=== PATIENT | male | born 1955 | race Two or more races ===

== ENCOUNTER 2022-03-12 11:14 | Inpatient (IN) | payer OTHER, MEDICAID ==
[~2022-03-12] VITALS: Ht 162.6 cm; Wt 72.5 kg
[2022-03-12 14:07] LABS: Basophils # (auto) 0 10 ^3/uL (0-0.2); Basophils % (auto) 0.7 % (0.0-2.0); Eosinophils # (auto) 0.2 10 ^3/uL (0-0.8); Hematocrit 38.6 % (41.0-53.0); Hemoglobin 13.5 g/dL (13.5-17.5); Lymphocytes % (auto) 19.9 % (10.0-50.0); Mean Corpuscular Hgb Conc. 35.1 g/dL (32.0-36.0); Mean Corpuscular Volume 82.6 fL (80.0-100.0); Monocytes # (auto) 0.4 10 ^3/uL (0-1.3); Monocytes % (auto) 7.8 % (0.0-12.0); Neutrophils # (auto) 3.5 10 ^3/uL (1.6-8.6); Neutrophils % (auto) 68.6 % (37.0-80.0); Nucleated Red Blood Cells % 0.1 %; Red Blood Cells 4.67 10^6/uL (4.5-5.90); White Blood Cell 5.1 10^3/uL (4.4-10.8)
[2022-03-12 14:10] LABS: Albumin 3.8 g/dL (3.4-5.0); Calcium 9.2 mg/dL (8.5-10.1); Potassium 4.5 mmol/L (3.5-5.1)
[2022-03-12 14:13] LABS: BUN/Creatinine Ratio 15.5; Bilirubin, Total 0.7 mg/dL (0.2-1.0); Total Protein 7.2 g/dL (6.4-8.2)
[2022-03-12] MEDS ORDERED: hydrALAZINE HCL 20 MG/ML VL IV PRN (15:45)
[2022-03-12] MEDS ORDERED: DEXTROSE (50%) 50ML SYRG IV PRN (15:45)
[2022-03-12] MEDS ORDERED: SODIUM CHLORIDE 0.9% 1,000 ML IV ONE ×2 (16:00)
[2022-03-12 16:20] LABS: Cholesterol 132 mg/dL (< 200)
[2022-03-12 16:23] LABS: HDL Cholesterol 46 mg/dL (40-59); LDL Cholesterol 67 mg/dL (< 100); Triglycerides 113 mg/dL (< 150)
[2022-03-12] MEDS ORDERED: ERTU15TA PO (16:38)
[2022-03-12] MEDS ORDERED: FAMO20IN2 PO (16:38)
[2022-03-12] MEDS ORDERED: APIX5TAB PO (16:38)
[2022-03-12] MEDS ORDERED: TAMS1CAP25 PO (16:38)
[2022-03-12] MEDS ORDERED: LOSA25TA38 PO (16:38)
[2022-03-12] MEDS: InsuLIN REG 1unit/0.01ml Soln (100units/ml) SC SCH ×2 (18:00→23:53)
[2022-03-12] MEDS: ACCU-CHEK COMFORT CURVE STRIP VI SCH ×2 (18:03→23:53)
[2022-03-12] MEDS ORDERED: KETOROLAC TROMETH 30 MG/ML 1ML VIAL IV ONE (20:00)
[2022-03-12] MEDS ORDERED: LORazepam 2MG/ML-1ML VIAL IV PRN (21:15)
[2022-03-12 22:00] VITALS: BP 151/78
[2022-03-12] MEDS: APIXABAN 5 MG TAB PO SCH (22:00)
[2022-03-13 00:04] VITALS: BP 152/77
[2022-03-13 04:30] VITALS: BP 152/74
[2022-03-13] MEDS: InsuLIN REG 1unit/0.01ml Soln (100units/ml) SC SCH ×4 (05:24→23:38)
[2022-03-13] MEDS: ACCU-CHEK COMFORT CURVE STRIP VI SCH ×4 (05:24→23:36)
[2022-03-13 05:26] LABS: Basophils # (auto) 0 10 ^3/uL (0-0.2); Basophils % (auto) 0.8 % (0.0-2.0); Eosinophils # (auto) 0.2 10 ^3/uL (0-0.8); Eosinophils % (auto) 5.1 % (0.0-7.0); Hematocrit 37.3 % (41.0-53.0); Hemoglobin 13.3 g/dL (13.5-17.5); Lymphocytes % (auto) 26.6 % (10.0-50.0); Mean Corpuscular Hemoglobin 29.6 pg (28.0-32.0); Mean Corpuscular Hgb Conc. 35.5 g/dL (32.0-36.0); Mean Corpuscular Volume 83.2 fL (80.0-100.0); Monocytes # (auto) 0.4 10 ^3/uL (0-1.3); Monocytes % (auto) 10.3 % (0.0-12.0); Neutrophils # (auto) 2.2 10 ^3/uL (1.6-8.6); Neutrophils % (auto) 57.2 % (37.0-80.0); Nucleated Red Blood Cells % 0.1 %; Red Blood Cells 4.48 10^6/uL (4.5-5.90); Red Cell Distribution Width 13.4 % (11.8-14.3); White Blood Cell 3.9 10^3/uL (4.4-10.8)
[2022-03-13 05:49] LABS: Albumin 3.2 g/dL (3.4-5.0); Calcium 8.4 mg/dL (8.5-10.1); Potassium 3.8 mmol/L (3.5-5.1)
[2022-03-13 05:52] LABS: BUN/Creatinine Ratio 16.5; Bilirubin, Total 0.7 mg/dL (0.2-1.0); Total Protein 6.2 g/dL (6.4-8.2)
[2022-03-13 08:30] VITALS: BP 111/61
[2022-03-13] MEDS: APIXABAN 5 MG TAB PO SCH ×2 (10:00→21:23)
[2022-03-13 12:33] VITALS: BP 123/65
[2022-03-13 12:38] LABS: Urine Bacteria FEW /hpf (None Seen); Urine Blood Negative /uL (Negative); Urine Specific Gravity 1.018 (1.001-1.035); Urine WBC 1 /hpf (0 - 3)
[2022-03-13 13:47] LABS: Alcohol, Urine < 3.0 mg/dL (0-10); Amphetamine Screen, Urine NEGATIVE (NEGATIVE); Barbiturate Scree,Urine NEGATIVE (NEGATIVE); Benzodiazephine Screen, Urine NEGATIVE (NEGATIVE); Cannabinoid Screen, Urine NEGATIVE (NEGATIVE); Cocaine Screen, Urine NEGATIVE (NEGATIVE); Opiate Scree,Urine NEGATIVE (NEGATIVE); Phencyclidine Screen, Urine NEGATIVE (NEGATIVE)
[2022-03-13 16:00] VITALS: BP 131/70
[2022-03-13] MEDS ORDERED: TAMSULOSIN HYDROCHLORIDE 0.4 MG CAP PO SCH (18:00)
[2022-03-13] MEDS: DOCUSATE SOD 100 MG CAP PO SCH (21:23)
[2022-03-13 22:00] VITALS: BP 126/67
[2022-03-14] VITALS (8 sets, daily range): BP systolic 119–135; BP diastolic 66–77
[2022-03-14] MEDS: InsuLIN REG 1unit/0.01ml Soln (100units/ml) SC SCH ×4 (06:00→23:54)
[2022-03-14] MEDS: ACCU-CHEK COMFORT CURVE STRIP VI SCH ×4 (06:03→23:49)
[2022-03-14] MEDS: DOCUSATE SOD 100 MG CAP PO SCH ×2 (09:51→23:00)
[2022-03-14] MEDS: APIXABAN 5 MG TAB PO SCH ×2 (09:51→23:00)
[2022-03-14] MEDS ORDERED: LACTULOSE 20Gm/30ML SOLN PO PRN (10:15)
[2022-03-14 11:34] LABS: BUN/Creatinine Ratio 17.2; Calcium 8.9 mg/dL (8.5-10.1); Potassium 4.3 mmol/L (3.5-5.1)
[2022-03-15] VITALS: BP 132/90
[2022-03-15 04:47] VITALS: BP 123/70
[2022-03-15] MEDS: ACCU-CHEK COMFORT CURVE STRIP VI SCH ×4 (06:11→23:35)
[2022-03-15] MEDS: InsuLIN REG 1unit/0.01ml Soln (100units/ml) SC SCH ×4 (06:19→23:36)
[2022-03-15 08:00] VITALS: BP_SYST 140; BP_SYST 98; BP_DIAS 60; BP_DIAS 66
[2022-03-15] MEDS: APIXABAN 5 MG TAB PO SCH ×2 (09:38→21:08)
[2022-03-15] MEDS: DOCUSATE SOD 100 MG CAP PO SCH ×2 (09:38→21:07)
[2022-03-15 12:25] VITALS: BP 143/72
[2022-03-15 16:00] VITALS: BP 126/69
[2022-03-15 22:00] VITALS: BP 134/67
[2022-03-16 05:00] VITALS: BP 119/68
[2022-03-16] MEDS: ACCU-CHEK COMFORT CURVE STRIP VI SCH ×4 (05:12→23:32)
[2022-03-16] MEDS: InsuLIN REG 1unit/0.01ml Soln (100units/ml) SC SCH ×4 (05:13→23:35)
[2022-03-16 08:00] VITALS: BP 127/68
[2022-03-16 09:00] VITALS: BP 127/68
[2022-03-16] MEDS: DOCUSATE SOD 100 MG CAP PO SCH ×2 (09:25→22:06)
[2022-03-16] MEDS: APIXABAN 5 MG TAB PO SCH ×2 (09:25→22:06)
[2022-03-16 16:30] VITALS: BP 127/67
[2022-03-16 22:00] VITALS: BP 133/65
[2022-03-17] VITALS (7 sets, daily range): BP systolic 116–137; BP diastolic 50–70
[2022-03-17] MEDS: ACCU-CHEK COMFORT CURVE STRIP VI SCH ×4 (05:26→23:54)
[2022-03-17] MEDS: InsuLIN REG 1unit/0.01ml Soln (100units/ml) SC SCH ×4 (05:27→23:56)
[2022-03-17] MEDS: APIXABAN 5 MG TAB PO SCH ×2 (11:19→21:58)
[2022-03-17] MEDS: DOCUSATE SOD 100 MG CAP PO SCH ×2 (11:19→21:59)
[2022-03-17] MEDS ORDERED: [UNRECOGNIZED DRUG - OTHER] IM ONE ×4 (15:30→19:00)
[2022-03-18 05:00] VITALS: BP 130/68
[2022-03-18] MEDS: ACCU-CHEK COMFORT CURVE STRIP VI SCH ×2 (05:15→12:02)
[2022-03-18] MEDS: InsuLIN REG 1unit/0.01ml Soln (100units/ml) SC SCH ×2 (05:17→12:00)
[2022-03-18 08:00] VITALS: BP 128/53
[2022-03-18 09:00] VITALS: BP 128/53
[2022-03-18] MEDS: DOCUSATE SOD 100 MG CAP PO SCH (10:09)
[2022-03-18] MEDS: APIXABAN 5 MG TAB PO SCH (10:09)
[2022-03-18 13:00] VITALS: BP 135/68
[2022-03-18 16:00] VITALS: BP 136/60
[2022-03-18] MEDS ORDERED: TAMSULOSIN HYDROCHLORIDE 0.4 MG CAP PO SCH (18:00)
[2022-03-19] MEDS ORDERED: LOSARTAN POTASSIUM 25 MG TAB PO SCH (10:00)
== END 2022-03-18 16:17 | DRG 64 ==
LOC: ER 11:14 → TELE 15:37 → TELE-CENTR 18:50
PROVIDERS: ADMIT Registered Nurse; ATTEND Internal Medicine
DX: I63.9 Cerebral infarction, unspecified (principal); N17.0 Acute kidney failure with tubular necrosis; I69.354 Hemiplegia and hemiparesis following cerebral infarction affecting left non-dominant side; N18.30 Chronic kidney disease, stage 3 unspecified; I12.9 Hypertensive chronic kidney disease with stage 1 through stage 4 chronic kidney disease, or unspecified chronic kidney disease; D69.6 Thrombocytopenia, unspecified; E11.65 Type 2 diabetes mellitus with hyperglycemia; E78.5 Hyperlipidemia, unspecified; Z20.822 Contact with and (suspected) exposure to COVID-19; I48.91 Unspecified atrial fibrillation; N40.1 Benign prostatic hyperplasia with lower urinary tract symptoms; R33.8 Other retention of urine; Z79.01 Long term (current) use of anticoagulants; Z86.718 Personal history of other venous thrombosis and embolism; Z90.49 Acquired absence of other specified parts of digestive tract
CPT/HCPCS: 36415; 70450; 70551; 71045; 73030; 76775; 80048; 80053; 80061; 80307; 81001; 82962; 83036; 85025; 87081; 91301; 92610; 93005; 93306; 93886; 96360; 96361; 97163; 99291; G0378; J1815; J1885

== ENCOUNTER → 2022-06-27 | Outpatient (CLI) | payer MEDICAID ==
[~2022-06-27] MED LIST: APIX5TAB PO; ERTU15TA PO; FAMO20IN2 PO; LOSA25TA38 PO; TAMS1CAP25 PO
[2022-06-27 12:02] LABS: Basophils # (auto) 0 10 ^3/uL (0-0.2); Basophils % (auto) 0.3 % (0.0-2.0); Eosinophils # (auto) 0.1 10 ^3/uL (0-0.8); Eosinophils % (auto) 1.4 % (0.0-7.0); Hematocrit 44.4 % (41.0-53.0); Hemoglobin 14.9 g/dL (13.5-17.5); Lymphocytes % (auto) 16.2 % (10.0-50.0); Mean Corpuscular Hemoglobin 28.5 pg (28.0-32.0); Mean Corpuscular Hgb Conc. 33.5 g/dL (32.0-36.0); Monocytes # (auto) 0.4 10 ^3/uL (0-1.3); Monocytes % (auto) 6.6 % (0.0-12.0); Neutrophils # (auto) 4.8 10 ^3/uL (1.6-8.6); Neutrophils % (auto) 75.5 % (37.0-80.0); Nucleated Red Blood Cells % 0.1 %; Red Blood Cells 5.23 10^6/uL (4.5-5.90); Red Cell Distribution Width 13.9 % (11.8-14.3); White Blood Cell 6.4 10^3/uL (4.4-10.8)
[2022-06-27 12:28] LABS: Potassium 4.1 mmol/L (3.5-5.1)
[2022-06-27 12:41] LABS: BUN/Creatinine Ratio 17.6; Calcium 9.3 mg/dL (8.5-10.1); Total Protein 7.3 g/dL (6.4-8.2)
== END | disposition home or self-care (01) ==
LOC: LAB 11:22
PROVIDERS: ATTEND Student in an Organized Health Care Education/Training Program
DX: E11.9 Type 2 diabetes mellitus without complications (principal); I10 Essential (primary) hypertension
CPT/HCPCS: 36415; 80053; 80061; 83036; 84443; 85025

== ENCOUNTER → 2024-02-05 | Outpatient (CLI) | payer OTHER ==
[~2024-02-05] VITALS: Ht 160 cm; Wt 70.3 kg
[~2024-02-05] MED LIST changes: +ADENOSINE 59 MG in GIVE UN-DILUTED 0 ML IV ONE; +ADENOSINE 90 MG/30 ML INJ IV ONE; +LOSA25TA15 PO; -LOSA25TA38 PO
== END | disposition home or self-care (01) ==
LOC: Rad HDHVI 10:14
PROVIDERS: ATTEND Internal Medicine Cardiovascular Disease
DX: I25.10 Atherosclerotic heart disease of native coronary artery without angina pectoris (principal); E11.9 Type 2 diabetes mellitus without complications; R42 Dizziness and giddiness; E78.5 Hyperlipidemia, unspecified; I10 Essential (primary) hypertension; Z82.49 Family history of ischemic heart disease and other diseases of the circulatory system
CPT/HCPCS: 78452; 93005; 96374; 96375; A9500; J0153

== ENCOUNTER 2024-03-10 07:43 | Day surgery (SDC) | payer OTHER, MEDICAID ==
[2024-03-08 11:57] LABS: Basophils # (auto) 0 10 ^3/uL (0-0.2); Basophils % (auto) 0.6 % (0.0-2.0); Eosinophils # (auto) 0.1 10 ^3/uL (0-0.8); Eosinophils % (auto) 1.9 % (0.0-7.0); Hematocrit 41.9 % (41.0-53.0); Hemoglobin 14.4 g/dL (13.5-17.5); Lymphocytes # (auto) 0.9 10 ^3/uL (0.4-5.4); Lymphocytes % (auto) 12.7 % (10.0-50.0); Mean Corpuscular Hemoglobin 28.8 pg (28.0-32.0); Mean Corpuscular Hgb Conc. 34.2 g/dL (32.0-36.0); Mean Corpuscular Volume 84.1 fL (80.0-100.0); Monocytes # (auto) 0.5 10 ^3/uL (0-1.3); Monocytes % (auto) 6.8 % (0.0-12.0); Neutrophils # (auto) 5.3 10 ^3/uL (1.6-8.6); Nucleated Red Blood Cells % 0.1 %; Red Blood Cells 4.98 10^6/uL (4.5-5.90); Red Cell Distribution Width 13.9 % (11.8-14.3); White Blood Cell 6.8 10^3/uL (4.4-10.8)
[2024-03-08 12:13] LABS: INR 1.06 (0.9-1.15); Prothrombin Time 11.1 sec (9.3-11.8)
[2024-03-08 12:41] LABS: Calcium 9.9 mg/dL (8.5-10.1); Chloride 106 mmol/L (98-107); Potassium 4.6 mmol/L (3.5-5.1); Sodium 140 mmol/L (136-145)
[2024-03-08 12:42] LABS: Anion Gap 4 (5-15); Carbon Dioxide 30 mmol/L (20-30)
[2024-03-08 12:47] LABS: Glucose 176 mg/dL (74-106)
[2024-03-08 12:48] LABS: BUN/Creatinine Ratio 11.9 (10.0-20.0); Blood Urea Nitrogen 21 mg/dL (9-23)
[~2024-03-10] VITALS: Ht 162.6 cm; Wt 69.9 kg
[2024-03-10] VITALS (8 sets, daily range): BP systolic 114–147; BP diastolic 61–86; PULSE 66–76; RESP 12–18; O2SAT 98–99
[~2024-03-10 07:43] MED LIST changes: -ADENOSINE 59 MG in GIVE UN-DILUTED 0 ML IV ONE; -ADENOSINE 90 MG/30 ML INJ IV ONE; +ASPI1TAB19 PO; +ATOR40TA52 PO; +CANA100T PO; -ERTU15TA PO; -FAMO20IN2 PO; +GABA-1250 PO; +GLIM4TAB42 PO; +INSU1INJ19 SC; +LOSA-533 PO; -LOSA25TA15 PO; +OMEP-448 PO; +SEMA2INJ3 SC; +TAMS0.4C36 PO; -TAMS1CAP25 PO
[2024-03-10] MEDS ORDERED: MIDAZOLAM HCL 2MG/2ML 2ml VIAL (1mg/ml) ONE (11:37)
[2024-03-10] MEDS ORDERED: fentaNYL CITRATE 100 MCG/2 ML VL ONE (11:37)
[2024-03-10] MEDS ORDERED: ANGIOMAX 250 MG VIAL IV ONE (11:37)
[2024-03-10] MEDS ORDERED: SODIUM CHL 0.9% 50 ML ONE (11:37)
[2024-03-10] MEDS ORDERED: ATROPINE SULF 1 MG/10ml SYR ONE (12:50)
[2024-03-10] MEDS ORDERED: TICAGRELOR 90 MG TAB ONE (12:59)
[2024-03-10] MEDS ORDERED: ASPirin 81 mg TAB ONE (13:00)
== END 2024-03-10 15:55 | disposition home or self-care (01) ==
LOC: CATH 07:43
PROVIDERS: ATTEND Internal Medicine Cardiovascular Disease
DX: R07.9 Chest pain, unspecified (principal); I25.10 Atherosclerotic heart disease of native coronary artery without angina pectoris; R06.09 Other forms of dyspnea; R06.02 Shortness of breath; Z79.82 Long term (current) use of aspirin; Z79.899 Other long term (current) drug therapy; Z98.890 Other specified postprocedural states
CPT/HCPCS: 36415; 71045; 80048; 85025; 85610; 85730; 92972; 92973; 92978; 93458; C1725; C1760; C1769; C1874; C1894; C9600; C9601; J0583; J1644; J2250; J3010; J7030; Q9967; 99152; 99153

== ENCOUNTER → 2024-06-07 | Outpatient (CLI) | payer OTHER | END | disposition home or self-care (01) | LOC: Rad HDHVI 10:48 | PROVIDERS: ATTEND Internal Medicine Cardiovascular Disease | DX: R00.2 Palpitations (principal) | CPT/HCPCS: 93306 ==